=== PATIENT | female | born 1945 | race Caucasian/White ===

== ENCOUNTER 2020-11-18 09:04 | Inpatient (IN) | payer OTHER ==
[~2020-11-18] VITALS: Ht 162.6 cm; Wt 72.6 kg
[2020-11-18 09:14] VITALS: BP 154/97
[2020-11-18 09:57] LABS: ABSOLUTE NEUTROPHILS 9.2 thou/uL (1.4-8.2); BASOPHILS 0.5 % (0.0-2.0); EOSINOPHILS 0.2 % (0.0-3.0); HEMATOCRIT 39.1 % (37.0-47.0); HEMOGLOBIN 12.8 gm/dL (12.0-15.0); LYMPHOCYTES 11.4 % (24.0-44.0); MCH 28.8 pg (26.0-34.0); MCHC 32.7 g/dL (28.0-37.0); MCV 88.2 fL (80.0-100.0); MONOCYTES 8.9 % (1.0-8.0); PLATELET COUNT 232 thou/uL (150-400); RBC 4.44 mil/uL (4.20-5.00); RDW 15.4 % (10.5-14.5); WBC 11.6 thou/uL (4.0-11.0)
[2020-11-18] MEDS ORDERED: CALCIUM 1200 MG (10:11)
[2020-11-18 10:16] LABS: ANION GAP 11 mmol/L (7-16); BUN 14 mg/dL (7-18); CALCIUM 9.6 mg/dL (8.5-10.1); CHLORIDE 102 mmol/L (98-107); CO2 22 mmol/L (21-32); CREATININE 1.2 mg/dL (0.6-1.0); GLUCOSE 189 mg/dL (74-106); POTASSIUM 3.5 mmol/L (3.5-5.1); SODIUM 135 mmol/L (136-145)
[2020-11-18 10:25] LABS: TROPONIN-I <0.06 ng/mL (<0.06)
[2020-11-18 22:32] VITALS: BP 102/64
[2020-11-18 22:40] VITALS: BP 102/64
[2020-11-18 22:58] VITALS: BP 116/78
[2020-11-19 04:18] VITALS: BP 97/55
--- NOTE | 2020-11-19 06:59 | NUR ---
RECEIVED REPORT FROM RALEIGH ALICEA RN.PATIENT ARRIVED TO ROOM 204 AROUND 2300.PATIENT A/O X 4.UP INDEPENDENTLY.DENIES PAIN.COMPLAIN OF SOB.ON O2 2L NC.LASIX GIVEN THIS MORNING.POC CONTINUED.
[2020-11-19 07:03] LABS: CALCIUM 9.3 mg/dL (8.5-10.1); CREATININE 1.1 mg/dL (0.6-1.0); POTASSIUM 3.6 mmol/L (3.5-5.1)
--- NOTE | 2020-11-19 07:40 | EKG ---
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
--- NOTE | 2020-11-19 07:46 | EKG ---
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: MARGIE : 1945 Requested By: Amara Atkins Order Number: [id number] MD: Raul Vasquez Measurements Intervals [place] Rate: 92 P: 42 AK: 139 QRS: 0 QRSD: 92 T: 171 QT: 398 QTc: 493 Interpretive Statements Sinus rhythm Nonspecific T abnormalities, lateral leads Borderline prolonged QT interval Baseline wander in lead(s) V3,V4,V5 Compared to ECG 11/18/2020 15:53:00 No significant change was found Electronically Signed On 11-19-2020 7:46:28 SEWING MACHINE OPERATOR FLOORPERSON by Raul Vasquez [email or web address] <ELECTRONICALLY SIGNED> By: Raul Vasquez MD, [facility] 11/19/2046 9 9 Raul Vasquez MD, [facility] /EPI
--- NOTE | 2020-11-19 08:05 | EKG ---
[address] [address] ELECTROCARDIOGRAM REPORT Name: SIMONE THOMASLEEN Edison Room #: 204-P ADM IN M.R.#: [id number] Admission: 11/18/20 Attend Phys: Aleks Ozuna MD, Discharge: Date of : 45 Report #: [id number] [facility] ED Test Date: 2020-11-18 Test Time: 15:53:00 Pat Name: KARTHIK THOMAS Department: Room: [facility] Gender: F [employer] Work Supervisor: teodoro : 1945 Requested By: Aleks Ozuna Order Number: [id number] MD: Sly Mixon Measurements Intervals [place] Rate: 89 P: 63 VT: 120 QRS: -2 QRSD: 82 T: 57 QT: 426 QTc: 519 Interpretive Statements Sinus rhythm PACs Borderline T abnormalities, lateral leads Compared to ECG 11/18/2020 09:37:26 Ventricular premature complex(es) now present Electronically Signed On 11-19-2020 8:05:06 CONSULTING SALES EXECUTIVE by Sly Mixon [email or web address] <ELECTRONICALLY SIGNED> By: Sly Mixon MD 11/19/20 0805 1553 1553 Sly Mixon MD /[facility]
[2020-11-19 08:11] VITALS: BP 110/66
--- NOTE | 2020-11-19 10:03 | NUR ---
75 year old female who presents to ER with Dyspnea. Admitted with A-fib with RVE and CHF. COVID PCR negative on 11-18-20. Patient states her DPOA is Brianna Dhillon at [phone]. 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 PT/OT orders will need to be placed for ADL assessment for discharge. Of note patient is up ad wander in the room at present. CM to follow for any discharge needs.
--- NOTE | 2020-11-19 11:56 | 2DMMODE ---
[facility] [place] [address] [place] [address] 2 D/M-MODE ECHOCARDIOGRAM Name: KARTHIK THOMAS Room #: 204-P ADM IN .R.#: [id number] Admission: 11/18/20 Attend Phys: Aleks Oznua MD, Discharge: Date of : 45 Report #: [id number] THIS REPORT FOR: cc: David Cabrera MD [facility] - Family physician critical access hospital Ancelmo Art MD [facility] ~ APPROVED REPORT Study performed: 11/19/2020 10:48:52 EXAM: Comprehensive 2D, Doppler, and color-flow Echocardiogram Patient Location: In-Patient Room #: 204 Status: routine BSA: 1.78 HR: 89 bpm BP: 110/66 mmHg Rhythm: Atrial Fibrillation Other Information Study Quality: Good Indications Congestive Heart Failure 2D Dimensions IVSd: 9.68 (7-11mm) LVOT Diam: 18.52 (18-24mm) LVDd: 53.77 mm PWd: 8.28 (7-11mm) LVDs: 40.99 (25-40mm) Left Atrium: 42.35 (27-40mm) Aortic Root: 25.25 mm LV Single Plane 4CH: 33.73 % TAPSE: 1.50 (<1.7) Guerrero's LVEF: 35.00 % Volumes Left Atrial Volume (Systole) Single Plane 4CH: 85.81 mL Single Plane 2CH: 31.86 mL LA ESV Index: 33.00 mL/m2 Aortic Valve AoV Peak Canelo.: 1.24 m/s AO Peak Gr.: 7.78 mmHg LVOT Max P.95 mmHg LVOT Max V: 0.99 m/s [facility] [address] [place] [address] 2 D/M-MODE ECHOCARDIOGRAM Name: KARTHIK THOMAS Room #: 204-P [facility] IN [facility]#: [id number] Admission: 11/18/20 Attend Phys: Aleks Ozuna, Discharge: Date of : 45 Report #: [id number] GASTON Vmax: 2.16 cm2 Mitral Valve MV Peak Gr.: 9.85 mmHg ERO: 70.73 mm2 MV Mean Gr.: 3.84 mmHg E/A Ratio: 136.0 MV Decel. Time: 139.47 ms MV E Max Canelo.: 1.36 m/s MV A Canelo.: 0.01 m/s MV Max Canelo.: 1.57 m/s MV Mean Canelo.: 0.84 m/s PISA: 0.80 cm MV VTI: 309.31 mm MR Radius: 0.79 cm MV PHT: 40.45 ms MR Als. Canelo: 1.02 m/s MR Flow: 397.64 mL/s Pulmonary Valve PV Peak Canelo.: 0.90 m/s PV Peak Gr.: 3.22 mmHg NC End Vmax: 1.65 m/s Tricuspid Valve TR Peak Canelo.: 2.92 m/s RAP Estimate: 44.00 mmHg TR Peak Gr.: 34.02 mmHg PA Pressure: 10.00 mmHg Left Ventricle Left ventricle size upper limits of normal There is normal left ventricular wall thickness. Left ventricular systolic function is moderate to severely decreased. LVEF -25% Right Ventricle The right ventricle is normal size. The right ventricular systolic function is normal. Atria Left atrium is borderline dilated. The right atrium size is normal. Aortic Valve The aortic valve is normal in structure. No aortic regurgitation is present. There is no aortic valvular stenosis. Mitral Valve The mitral valve is normal in structure. Mitral regurgitation jet is eccentrically directed. Moderate to severe mitral regurgitation No evidence of mitral valve stenosis. [address] [address] 2 D/M-MODE ECHOCARDIOGRAM Name: SIMONE THOMASBIBIANA Hogan Room #: 204-P [facility] IN [facility]#: [id number] Admission: 11/18/20 Attend Phys: Aleks Ozuna, Discharge: Date of : 45 Report #: [id number] Tricuspid Valve The tricuspid valve is normal in structure. Trace to mild tricuspid regurgitation. The RVSP is 40-45 mmHg. Pulmonic Valve The pulmonary valve is normal in structure. Trace to mild pulmonic regurgitation. Great Vessels The aortic root is normal in size. IVC is dilated and collapses <50% with inspiration. Pericardium There is no pericardial effusion. Small right pleural effusion. <Conclusion> Left ventricular size upper limits of normal Normal wall thickness Severe global hypokinesis, ejection fraction 25% Mild/moderate biatrial enlargement Color-flow Doppler study was performed of the aortic/mitral/aortic/tricuspid valve Normal aortic valve structure/ function Moderate-severe mitral valve insufficiency Mild tricuspid valve insufficiency Pulmonary artery systolic pressure estimated 40-45 mmHg No pericardial effusion Dilated IVC, mildly responsive to respiration <ELECTRONICALLY SIGNED> By: Ancelmo Art MD, FACC 11/19/20 1156 1156 1156 Ancelmo Art MD, FACC /INF
[2020-11-19 11:58] VITALS: BP 135/67
[2020-11-19 16:17] VITALS: BP 122/75
[2020-11-19 20:30] VITALS: BP 119/77
[2020-11-20 05:32] VITALS: BP 101/60
[2020-11-20] MEDS ORDERED: AMIODARONE HCL400 MG PO (07:15)
[2020-11-20] MEDS ORDERED: METOPROLOL SUCC50 MG PO (07:15)
[2020-11-20] MEDS ORDERED: DEMADEX20 MG PO (07:15)
[2020-11-20] MEDS ORDERED: XARELTO20 MG PO (07:15)
[2020-11-20] MEDS ORDERED: COZAAR 25 MG TA25 M1 PO (07:15)
--- NOTE | 2020-11-20 07:34 | NUR ---
A/O X 4.UP ADLIB.DENIES PAIN AND SOB.MONITOR SHOWS SA.POC CONTINUED.
[2020-11-20 08:26] VITALS: BP 107/59
--- NOTE | 2020-11-20 09:45 | H ---
[facility] [place] [address] HISTORY AND PHYSICAL Name: KARTHIK THOMAS Room #: 204-P ADM IN M.R.#: [id number] Admission: 11/18/20 Attend Phys: Aleks Ozuna MD, Discharge: Date of : 45 Report #: [id number] THIS REPORT FOR: cc: David Cabrera MD [facility] - Family physician unknown Aleks Ozuna MD [facility] ~ DATE OF SERVICE: 11/18/2020 CARDIOLOGY CONSULT/ADMISSION HISTORY OF PRESENT ILLNESS: The patient is a 75-year-old female who presents with 4-5 days of increasing dyspnea and shortness of breath. Subsequently, found to be in AFib, rapid ventricular response. She has no prior cardiac history and essentially takes no medications. She very intermittently sees primary care doctor, Dr. Cabrera, but Dr. Cabrera since moved to [place]. She works at [employer] and has frequent COVID testing, all of which have been negative. She was treated a week or so ago with antibiotics and prednisone for recurrent bronchitis issue and COVID testing recently was 48 hours ago and 72 hours ago was negative. No PND, orthopnea, or peripheral edema prior to this. There has been no weight gain. Still no significant edema. Her BNP is 20,000. Chest x-ray has some mild cephalization. She denies any chest pain. PAST MEDICAL AND SURGICAL HISTORY: Positive for the recurrent bronchitis and the left wrist surgery. ALLERGIES: Apparently, no known drug allergies. 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 She does have grown child. No current alcohol or tobacco. She quit tobacco 25 years ago. REVIEW OF SYSTEMS: Essentially negative except for stated above. PHYSICAL EXAMINATION: VITAL SIGNS: Pulse is 130s to 140s, blood pressure 146/90. HEENT: Eyes reveal xanthelasmas. Pharynx is clear. NECK: Shows preserved upstrokes. Trace of JVD is noted. LUNGS: Fine basilar crackles, otherwise normal excursion. No wheezes. CARDIOVASCULAR: Distant S1 and S2, tachycardic with an irregularly irregular, S1, S2. ABDOMEN: Soft. No HSM or abdominal bruit. EXTREMITIES: Trace of edemas. Pulses diminished, but intact. NEUROLOGIC: Nonfocal. SKIN: Warm and dry without xanthoma or ulcer. MUSCULOSKELETAL: No gross joint deformity. [facility] [address] [place] [address] HISTORY AND PHYSICAL Name: KARTHIK THOMAS Room #: 204-P [facility] IN .R.#: [id number] Admission: 11/18/20 Attend Phys: Aleks Ozuna MD, Discharge: Date of : 45 Report #: [id number] ASSESSMENT: 1. Atrial fibrillation with rapid ventricular response. 2. Hypoxemia/tggt-qx-sshhgxik volume overload secondary to above. 3. History of recurrent bronchitis with recent exacerbation/COVID negative. 4. Degenerative joint disease. RECOMMENDATIONS AND PLAN: We will currently try to address this with oral AV node inhibiting drugs IV, Cardizem bolus and drip and now IV Lopressor. We will add oral agent and 20 of IV Lasix for this apparent volume overload. She is certainly requesting not to be admitted, but this may not be an option. We will see if we can diurese her slow her down the Emergency Room as we are also waiting for beds and will initiate anticoagulation with a DOAC, Xarelto. We will calculate her creatinine clearance. I suspected the lead to be 15 or 20 mg a day with AV node inhibiting oral medications and close followup this week in the office. This has been discussed with the patient in detail. She agrees with this plan. <ELECTRONICALLY SIGNED> By: Aleks Ozuna MD, FACC 11/20/20 0945 1035 1100 Aleks Ozuna MD, FACC /nt
[2020-11-20 11:15] VITALS: BP 121/59
[2020-11-20 13:34] VITALS: BP 121/59
--- NOTE | 2020-11-20 14:30 | NUR ---
ASSESSMENT CHARTED - MEDS PER MAR - UP AD REYMUNDO ON UNIT. MICHAEL DIET AND FLUIDS. NO CO'S OF PAIN OR NAUSEA. PT HOME THIS AFTERNOON - INSTRUCTION RE HOME MEDS/CARE AND FOLLOW UP GIVEN TO PATIENT - STATED UNDERSTANDING OF INSTRUCTION GIVEN. LEFT UNIT VIA WHEELCHAIR - HOME VIA PVT VEHICLE ACCOMAPANIED BY NELY. NO CO'S AT TIME OF D/C.
== END 2020-11-20 14:02 | disposition home or self-care (01) | DRG 291 ==
LOC: ER 09:04 → 2N 14:05 → EROBS 14:05 → 2N 22:46
PROVIDERS: Emergency Medicine; Nurse Practitioner Adult Health; ADMIT Internal Medicine Cardiovascular Disease; ATTEND Internal Medicine Cardiovascular Disease
DX: I50.23 Acute on chronic systolic (congestive) heart failure (principal); J96.21 Acute and chronic respiratory failure with hypoxia; I42.9 Cardiomyopathy, unspecified; I48.91 Unspecified atrial fibrillation; Z20.822 Contact with and (suspected) exposure to COVID-19; M19.90 Unspecified osteoarthritis, unspecified site; Z79.899 Other long term (current) drug therapy
CPT/HCPCS: 10081

== ENCOUNTER → 2020-11-26 | Outpatient (CLI) | payer OTHER ==
[~2020-11-26] MED LIST: AMIODARONE HCL400 MG PO; CALCIUM 1200 MG; COZAAR 25 MG TA25 M1 PO; DEMADEX20 MG PO; METOPROLOL SUCC50 MG PO; XARELTO20 MG PO
== END ==
LOC: SJCVCIMAG 07:45
PROVIDERS: ATTEND Internal Medicine Cardiovascular Disease
DX: I48.0 Paroxysmal atrial fibrillation (principal); D68.59 Other primary thrombophilia; I42.9 Cardiomyopathy, unspecified; I10 Essential (primary) hypertension; Z79.899 Other long term (current) drug therapy; Z87.891 Personal history of nicotine dependence

== ENCOUNTER → 2021-03-08 | Outpatient (CLI) | payer OTHER | LOC: SJCVCIMAG 07:40 | PROVIDERS: ATTEND Internal Medicine Cardiovascular Disease | DX: I42.9 Cardiomyopathy, unspecified (principal); I48.0 Paroxysmal atrial fibrillation; D68.59 Other primary thrombophilia; I10 Essential (primary) hypertension; E78.00 Pure hypercholesterolemia, unspecified; Z98.890 Other specified postprocedural states; Z79.899 Other long term (current) drug therapy; Z87.891 Personal history of nicotine dependence; Z82.49 Family history of ischemic heart disease and other diseases of the circulatory system ==